=== PATIENT | female | born 1985 | race Caucasian/White ===

== ENCOUNTER 2017-08-17 11:47 | Emergency (ER) | payer OTHER ==
[~2017-08-17] VITALS: Ht 167.6 cm; Wt 50.0 kg
[2017-08-17] MEDS ORDERED: PERCOCET 5/31 TABLET PO (14:54)
[2017-08-17] MEDS ORDERED: MOTRIN800 MG PO (14:54)
[2017-08-17 15:10] VITALS: BP 122/83
== END 2017-08-17 15:10 | disposition home or self-care (01) ==
LOC: EME 11:47
DX: S09.8XXA Other specified injuries of head, initial encounter (principal); S16.1XXA Strain of muscle, fascia and tendon at neck level, initial encounter; S60.222A Contusion of left hand, initial encounter; W20.8XXA Other cause of strike by thrown, projected or falling object, initial encounter; W17.89XA Other fall from one level to another, initial encounter; Y99.0 Civilian activity done for income or pay
CPT/HCPCS: 72050; 73130; 99281; 99283